=== PATIENT | female | born 2000 | race Hispanic/Latino ===

== ENCOUNTER 2022-05-03 21:47 | Emergency (ER) | payer OTHER ==
[~2022-05-03] VITALS: Ht 152.4 cm; Wt 65.8 kg
[2022-05-03] MEDS ORDERED: DIPH25 PO (23:25)
[2022-05-03] MEDS ORDERED: SULF1TAB42 PO (23:25)
[2022-05-03] MEDS ORDERED: SULFAMETHOX-TMP DS 800/160 TAB ONE (23:35)
[2022-05-03 23:44] VITALS: BP 135/74
[2022-05-04] MEDS ORDERED: SULFAMETHOX-TMP DS 800/160 TAB PO SCH
== END 2022-05-03 23:32 | disposition home or self-care (01) ==
LOC: EDH 21:47
DX: L03.115 Cellulitis of right lower limb (principal); Z88.0 Allergy status to penicillin